=== PATIENT | male | born 1995 | race Caucasian/White ===

== ENCOUNTER 2025-02-01 20:04 | Emergency (ER) | payer BC, SELFPAY ==
[2025-02-01 20:07] VITALS: BP 133/66; PULSE 62; TEMP 36.8; O2SAT 98; BMI 20.9
--- NOTE | 2025-02-01 20:28 | ED_ITS ---
HPI - Dental/Oral General Chief complaint: Dental/Oral Stated complaint: toothache Time Seen by Provider: 02/01/25 20:08 Source: patient Mode of arrival: walk-in Limitations: no limitations History of Present Illness HPI Narrative: 29-year-old male presents with increasing pain in the left lower tooth #20. He reports breaking the tooth last week and has a root canal scheduled in 4 days. Pain is worse with biting and associated with sensitivity to hot and cold. He denies swelling under the tongue, difficulty swallowing, or trouble speaking. No fever, chest pain, or shortness of breath. Patient has a history of dental caries and prior dental issues. Related Data Home Medications ?Medication ?Instructions ?Recorded ?Confirmed amoxicillin 500 mg capsule 500 mg PO Q6H 02/01/2501/05 Previous Rx's ?Medication ?Instructions ?Recorded naproxen 500 mg tablet 500 mg PO Q12H PRN pain #20 tabs 02/01/25 tramadol 50 mg tablet 50 mg PO Q8H PRN pain #10 ta bs 02/01/25 Allergies Allergy/AdvReac Type Severity Reaction Status Date / Time No Known Drug Allergies Allergy Verified 02/01/25 20:10 PFSH PFSH Social History Little interest or pleasure in doing things: not at all Feeling down, depressed, or hopeless: not at all Exam Narrative Exam Narrative: General: Patient alert, oriented ?3, in no acute distress. Vital Signs: Afebrile, stable. HEENT: Oropharynx clear, mucous membranes moist. No erythema or lesions. No swelling under the tongue or floor of mouth. Dental: Tooth #20 tender to percussion and palpation. Sensitivity noted to hot and cold stimuli. No visible abscess or swelling. Gingiva around tooth intact, no erythema. Bite test reproduces pain. Neck: Supple, no lymphadenopathy. Cardiovascular: Regular rate and rhythm, no murmurs. Respiratory: Lungs clear to auscultation bilaterally. Neurological: Alert, cranial nerves II?XII intact, normal speech. Skin: Warm, dry, intact. Constitutional Vital Signs, click to edit/add: Last Vital Signs Temp 98.2 F 02/01/25 20:07 Pulse 62 02/01/25 20:07 Resp 17 02/01/25 20:07 BP 133/66 02/01/25 20:07 Pulse Ox 98 02/01/25 20:07 O2 Del Method Room Air 02/01/25 20:07 Course Vital Signs Vital signs: Vital Signs Temperature 98.2 F 02/01/25 20:07 Pulse Rate 62 02/01/25 20:07 Respiratory Rate 17 02/01/25 20:07 Blood Pressure 133/66 02/01/25 20:07 Pulse Oximetry 98 02/01/25 20:07 Oxygen Delivery Method Room Air 02/01/25 20:07 Temperature 98.2 F 02/01/25 20:07 Pulse Rate 62 02/01/25 20:07 Respiratory Rate 17 02/01/25 20:07 Blood Pressure 133/66 02/01/25 20:07 Pulse Oximetry 98 02/01/25 20:07 Oxygen Delivery Method Room Air 02/01/25 20:07 MDM - Dental/Oral MDM Narrative Medical decision making narrative: 29-year-old male presents with left lower tooth #20 pain, worsening over the past week following a recent tooth fracture. Pain is sharp with biting and associated with sensitivity to hot and cold. Exam shows tenderness to percussion and palpation of tooth #20 without swelling or abscess. Given the risk of bacterial infection prior to scheduled root canal, the patient will be treated with continuing amoxicillin as Rx by dentist Symptomatic pain management includes naproxen 500 mg orally twice daily and Ultram 50 mg every 6 hours as n eeded, with 10 tablets prescribed. Patient advised on proper medication use, signs of worsening infection (swelling, fever, difficulty swallowing), and to follow up with his scheduled root canal in 4 days or return sooner if symptoms escalate. Medical Records Attestation: I reviewed the patient's medical records. Discharge Plan Discharge Chief Complaint: Dental/Oral Clinical Impression: Toothache, Fracture of tooth Patient Disposition: Home, Self-Care Time of Disposition Decision: 20:45 Condition: Good Prescriptions / Home Meds: New naproxen 500 mg tablet 500 mg PO Q12H PRN (Reason: pain) Qty: 20 0RF tramadol 50 mg tablet 50 mg PO Q8H PRN (Reason: pain) Qty: 10 0RF No Action amoxicillin 500 mg capsule 500 mg PO Q6H Print Language: Monegasque Instructions: Toothache (ED) Additional Instructions: Discharge Instructions: Dental Pain ? Tooth #20 Reason for Visit: You were seen today for pain in your left lower tooth (#20). You have a root canal scheduled in 4 days. Medications: * Amoxicillin 875 mg: Take twice daily for 7 days to prevent or treat infection. * Naproxen 500 mg: Take twice daily as directed for pain and inflammation. * Ultram 50 mg: Take every 6 hours as needed for severe pain. You were given 10 tablets. Instructions: * Take all medications as prescribed. * Do not skip doses of antibiotics. * Use pain medications only as needed; do not exceed the recommended dose. * Maintain good oral hygiene, but avoid chewing directly on the painful tooth. * Avoid very hot or cold foods if they worsen sensitivity. * Drink plenty of fluids and eat soft foods if needed. * * Other management recommendations: * Cold compresses: Apply externally to affected area for 10?15 minutes at a time to reduce swelling and numb pain. * Warm salt water rinses: Helps with gum irritation and mild infection control. * Avoid chewing on the affected side to minimize mechanical pain. * Soft diet: Softer foods reduce pressure on sensitive teeth. * Good oral hygiene: Gentle brushing and flossing can prevent secondary infections. * Avoid exceeding recommended doses of NSAIDs or acetaminophen. * Take medications with food if stomach upset occurs. * Contact dentist promptly for worsening pain, swelling, or fever, as these may indicate infection or abscess. When to Seek Immediate Care: Call or return to the ED/dentist immediately if you experience: * Increasing swelling around the tooth or jaw * Fever or chills * Difficulty swallowing or breathing * Severe uncontrolled pain Follow-Up: * Keep your root canal appointment in 4 days. * Contact your dentist sooner if any of the above warning signs occur. Patient Understanding: * You understand the medications, dosing, and reasons to return. Referrals: Physician,Non-Staff, [Primary Care Provider] - 1 week Discharge Date/Time: 02/01/25 21:05
[2025-02-01] MEDS: TRAMADOL HCL 50 MG TABLET PO (21:03)
== END 2025-02-01 21:05 | disposition home or self-care (01) ==
PROVIDERS: Emergency Provider Internal Medicine; Family Provider Family Medicine
DX: K08.89 Other specified disorders of teeth and supporting structures (principal); S02.5XXA Fracture of tooth (traumatic), initial encounter for closed fracture
CPT/HCPCS: 99283